=== PATIENT | female | born 2000 | race Caucasian/White ===

== ENCOUNTER → 2024-02-24 | Outpatient (CLI) | payer OTHER, SELFPAY ==
--- NOTE | 2024-02-24 10:09 | RAD_ITS ---
STUDY: X-RAY - LEFT KNEE REASON FOR EXAM: Female, 23 years old. PAIN TECHNIQUE: 4 views of the left knee. COMPARISON: None. FINDINGS: Normal visualized distal femur. Normal visualized proximal tibia and fibula. Normal proximal tibiofibular articulation. There is no demonstrated fracture. Normal medial femorotibial compartment. Normal lateral femorotibial compartment. Normal patellofemoral articulation. There is a tiny joint effusion. The soft tissue structures are unremarkable. RAD/Knee 4 or More Views IMPRESSION: Tiny joint effusion. No demonstrated fracture. Electronically Signed: Kt Zheng MD at 15:45 EDT ,
--- NOTE | 2024-02-24 10:10 | RAD_ITS ---
STUDY: X-RAY - RIGHT KNEE REASON FOR EXAM: Female, 23 years old. PAIN TECHNIQUE: 4 views of the right knee. COMPARISON: None. FINDINGS: Normal visualized distal femur. Normal visualized proximal tibia and fibula. Normal proximal tibiofibular articulation. There is no demonstrated fracture. Normal medial femorotibial compartment. Normal lateral femorotibial compartment. Normal patellofemoral articulation. There is a small joint effusion. The soft tissue structures are unremarkable. RAD/Knee 4 or More Views IMPRESSION: Small joint effusion. No demonstrated fracture. Electronically Signed: Kt Zheng MD at 15:44 EDT ,
[2024-02-24 11:10] LABS: EXAGEN MAILED SPECIMEN
[2024-02-24 12:26] LABS: Absolute Lymphocyte Count 1.83 X10^3/uL (0.83-4.51); Absolute Neutrophil Count 4.7 X10^3/uL (2.0-7.7); Basophil# 0.03 X10^3/uL; Basophil% 0.4 % (0-1); Eosinophil# 0.08 X10^3/uL; Eosinophils% 1.1 % (0-5); Hematocrit 42.6 % (37-47); Hemoglobin 13.8 g/dL (12.0-15.0); Lymphocyte # 1.83 X10^3/ul (0.83-4.51); Lymphocyte % 25.7 % (19-41); Mean Corp Hgb Conc 32.4 g/dL (32-36); Mean Corpuscular Volume 92.6 fL (81-99); Mean Platelet Vol. 11.5 fl (6.2-12.0); Monocyte# 0.48 X10^3/uL; Monocyte% 6.8 % (0-10); NRBC Flagged by Analyzer 0 % (0-5); Neutrophil # 4.66 X10^3/uL (2.7-7.7); Neutrophil % 65.6 % (47-70); Platelet Count 364 K/mm3 (150-450); RBC Distribution Width CV 12.4 % (11.6-14.6); RBC Distribution Width SD 42.3 fl (35.1-43.9); White Blood Count 7.1 K/mm3 (4.4-11.0)
[2024-02-24 12:29] LABS: Protein:Creat Ratio 118 mg/g CRE (0-200)
[2024-02-24 12:31] LABS: Color, Urine Yellow (Yellow); Glucose, Dipstick Normal (Normal); Ketone-Dipstick Negative (Negative); Leukocyte Esterase-Dipstick 25 /ul (Negative); Nitrite-Dipstick Negative (Negative); Occult Blood-Urine 10 /ul (Negative); Protein-Dipstick Negative (Negative); Specific Gravity, Urine 1.015 (1.002-1.030); Urine Bilirubin Dipstick Negative (Negative); Urine Clarity Sl. Cloudy (Clear); Urine Urobilinogen Normal (Normal); Urine pH 6.5 (5.0 - 8.0)
[2024-02-24 13:06] LABS: ALB/GLOB Ratio 0.9 RATIO (0.9-2.4); AST(SGOT) 21 U/L (15-37); Alanine Aminotransfer ALT/SGPT 34 U/L (13-56); Albumin, Serum 3.9 g/dL (3.2-5.0); Alkaline Phosphatase 69 U/L (45-117); Anion Gap 3 (5-15); BUN 10 mg/dL (7-18); Calcium,Total 9.4 mg/dL (8.5-10.1); Chloride 108 mmol/L (98-107); Creatinine, Serum 0.91 mg/dL (0.55-1.02); EST Glomerular Filtration Rate 81 mL/min (>60); Est Glom Filt Rate - Afr Amer 98 mL/min (>60); Globulin 4.2 g/dL (2.2-4.2); Glucose 87 mg/dL (74-106); Protein, Total 8.1 g/dL (6.4-8.2); Sodium Level 136 mmol/L (136-145)
[2024-02-24 13:33] LABS: Hepatitis B Surface Antibody Reactive; Hepatitis B Surface Antigen Non-Reactive (Nonreactive); Hepatitis C Antibody Non-Reactive (Nonreactive)
[2024-03-01 18:09] LABS: HLA B27 Negative (.)
== END | disposition home or self-care (01) ==
LOC: MTLAB 10:07
PROVIDERS: PCP Nurse Practitioner Family; Referring Provider Internal Medicine Rheumatology; Visit Provider Internal Medicine Rheumatology
DX: M06.4 Inflammatory polyarthropathy (principal); R76.8 Other specified abnormal immunological findings in serum
CPT/HCPCS: 36415; 73564; 80053; 81002; 81374; 82570; 84156; 85025; 86706; 86803; 87340

== ENCOUNTER 2025-02-24 07:00 | Outpatient (RCR) | payer OTHER, SELFPAY ==
--- NOTE | 2025-01-12 08:15 | HP.PTEVAL_ITS ---
Patient's Visit Information Visit Information Visit Information: CÉSAR CARDONA is a 24 year old F referred to Physical Therapy by ELVIRA Scott with a diagnosis of Bilateral Knee Pain. Date of Evaluation: 01/12/25 Physical Therapist: Sana Reddy DPT Visit Plan Frequency: 2x /Week Duration: 4 Weeks Plan: 2 weeks pool and 2 weeks land-Comprehensive HEP including gym and bands for scapular, core, UE and LE strength/stabilization and proprioception for hypermobility. HEP Given IE: clams, hip extension Subjective Subjective: Patient reports knee pain for about 4 years- left started- randomly driving and sharp pain- then started in the right- and is now random in both- as its gone on its now achy all the time- and random sharp pains on and off. There is no predicting pattern- sitting, standing, wakes her up at night. The pain is located behind the knee cap. Twice in the last month her right knee she has not been able to put weight on her right knee. She had her pick her knee up and sometimes if it pops it feels better. She had PT 2 years ago and they had no idea what was going on- when she was working out consistently- she adjusted it and it did not help. She is not working out consistently. She had surgery at the beginning of November but no restrictions now. She has seen PCP, rhumatology (no autoimmune), and ortho- she has spine MD next week. She also has OA in her neck and back. She is does a lot of popping and clicking. She does not feel better or worse when she is working out. She has compression braces but she wants to order PF braces- she is ordering them. 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 She feels the knees are worse from the beginning but at this point they are not pretty consistent. PMHx/Meds: no changes since ortho Objective Objective: Posture: forward head, rounded shoulders- can correct with verbal cues Gait: no deviation noted- pes planus HR/TR: able SLS: 30 sec with moderate pes planus ROM: hypermobile Strength: Core: fair minus, Scap: fair minus, Hip: 4/5 throughout, Knee: Left: Flexion: 30/32 Extn: 49/48 Right:Flexion: 31/32 Extn: 62/62, Ankle: 5/5, Balance/Special Test Scores Lower Extremity Functional Score: 69 Goals Goal 1:: Patient will be I with HEP and progression Goal Time Frame: 4-6 Weeks Goal 2:: Patient will report no pain in her knees for 1 week Goal Time Frame: 4-6 Weeks Goal 3:: Patient will demo equal strength in knee extension Goal Time Frame: 4-6 Weeks Goal 4:: Patient will report 80% improvement Goal Time Frame: 4-6 Weeks Rehabilitation Potential Physical Therapy Diagnosis: Patient presents with hypermobility- she has decreased LE and core strength/stabilization and muscular endurance leading to pes planus and increased instability with pain Anticipated Interventions Patient/Client Instruction: Educate patient on: Benefits of Fitness Program Therapeutic Exercise to Include: Strength training, Power training, Endurance training, Balance training, Coordination, Agility training, Body mechanics, Postural training, Gait and locomotor training, Neuromotor development, In an aquatic setting, Dynamic Lumbar Stabilization and Scapular Strength/Stabilization Text: Thank you for the opportunity to evaluate your patient. For Medicare and Medicare HMO plans, please review the plan of care and approve it. It will need to be FAXED BACK to us at [phone] for Medicare purposes. For Medicare only, by signing this I certify the plan of care. Please let me know if there are questions or concerns regarding this plan of care. Physician Signature: Date:__
--- NOTE | 2025-01-20 16:50 | HP.PTEVAL2 ---
Patient's Visit Information Visit Information Visit Information: CÉSAR CARDONA is a 24 year old F referred to Physical Therapy by ELVIRA Scott with a diagnosis of LOW BACK PAIN ,CERVICALGIA. Date of Evaluation: 01/20/25 Physical Therapist: Esau Adams, PT, Cert MDT, OCS Visit Plan Frequency: 2x /Week Duration: 4 Weeks Plan: PT INTERVENTIONS DLS ,POSTURAL EX'S,ACTIVITY MODIFICATION ,AND THORACIC STRENGTHENING Subjective Subjective: This 24 y/o female presents to physical therapy lumbar and cervical pain. Patient has had cervical and neck throughout high school no predisposing factors just insidious onset symptoms worse over time. Seen Mauricio Manrique ,recommended PT and pain management. No new medication celecoxib. Patient symmetrical pain described as ache. Aggravating general activities and daily tasks. level Alleviating popping and strethingh. C/O occasional BRITO. Denies tinnitus /nausea/dizziness. If PT doesn't help plan for MRI. Patient had x-rays Minimal to mild degenerative changes of the mid to lower cervical spine are seen, with mild disc narrowing noted at the C5-C6. Pain affects sleeping. R/O RA . Location symmetrical LS and no leg symptoms. Described as ache. Aggravating not specific activities . Alleviating factors stretching movement. Coughing/sneezing + .Bowel/bladder-. Denies paresthesia/tingling -. Patient has no h/o trauma or injury. Patient condition affects QOL and function/housework . X-rays showed Moderate disc space narrowing is seen at L4-L5, and at least moderate L5-S1 levels.Lower lumbar posterior facet hypertrophy is seen. SOCIAL: VOCATION: teacher Pain Bilateral Back: Intensity: 2 Pain Intensity Range: 6, 8 and 10 Bilateral Neck: Intensity: 2 Pain Intensity Range: 7 Objective Objective: POSTURE: rounded shoulders head forward ,increase lordosis NEURO: denies paresthesia/tingling ,reflexes L3-4,L4-5,L5-S1 3/3 ,C5-6-7 3/3 PALAPTION: unremarkable LUMBAR ROM: flexion WFL ,extension WFL ,side glides WFL HAMSTRINGS : WFL PROM HIP : hip ROM ER/IR WNL MMT: quads/hams/hip 4/5 and,ankle 4/5 CERVICAL ROM: flexion WFL ,rotation,lateral flexion WNL ,retraction WFL ,protrusion WFL MMT : BUE WFL Special Tests C/S Radiculapathy - Left Upper limb tension test: Negative C/S Radiculapathy - Right Upper limb tension test: Negative C/S Radiculapathy - Left [place]: Negative C/S Radiculapathy - Right [place]: Negative C/S Radiculapathy - Left Cervical distraction: Negative C/S Radiculapathy - Right Cervical distraction: Negative C/S Radiculapathy - Left Relief test: Negative C/S Radiculapathy - Right Relief test: Negative Sharp Tavo: Negative Vertebral Artery Test: Negative Alar Ligament Test: Negative Protrusion - Mechanical Response: No effect Protrusion - Symptoms During Testing: No effect Protrusion - Symptoms After Testing: No effect Retraction - Mechanical Response: No effect Retraction - Symptoms During Testing: No effect Retraction - Symptoms After Testing: No effect Retraction-Extension - Mechanical Response: No effect Retraction-Extension - Symptoms During Testing: No effect Retraction-Extension - Symptoms After Testing: No effect Sidebend Right - Mechanical Response: No effect Sidebend Right - Symptoms During Testing: No effect Sidebend Right - Symptoms After Testing: No effect Sidebend Left - Mechanical Response: No effect Sidebend Left - Symptoms During Testing: No effect Sidebend Left - Symptoms After Testing: No effect Rotation Right - Mechanical Response: No effect Rotation Right - Symptoms During Testing: No effect Rotation Right - Symptoms After Testing: No effect Rotation Left - Mechanical Response: No effect Rotation Left - Symptoms During Testing: No effect Rotation Left - Symptoms After Testing: No effect Flexion - Mechanical Response: No effect Flexion - Symptoms During Testing: No effect Flexion - Symptoms After Testing: No effect Slump test left side: Negative Slump test right side: Negative Left Straight Leg Raise: Negative Right Straight Leg Raise: Negative Flexion - Mechanical Response: No effect Flexion - Symptoms During Testing: Increases Flexion - Symptoms After Testing: No worse Extension - Mechanical Response: No effect Extension - Symptoms During Testing: Increases Extension - Symptoms After Testing: No worse Right Side Glides - Mechanical Response: No effect Right Side [place] - Symptoms During Testing: No effect Right Side [place] - Symptoms After Testing: No effect Left Side [place] - Mechanical Response: No effect Left Side [place] - Symptoms During Testing: No effect Left Side [place] - Symptoms After Testing: No effect Goals Goal 1:: Patient to be I with HEP for back Goal Time Frame: 4-6 Weeks Goal 2:: Patient to improve cervical and lumbar ROM for function of recovery for job demands Goal Time Frame: 4-6 Weeks Goal 3:: Patient to improve back oswestry score by 3-5 points to improve QOL Goal Time Frame: 4-6 Weeks Goal 4:: Patient to demonstrate 70% improvement with less pain and improved function job and house demands Goal Time Frame: 4-6 Weeks Goal 5:: Patient to improve posture /body mechanics 90% of the time Goal Time Frame: 4-6 Weeks Rehabilitation Potential Physical Therapy Diagnosis: This patient has cervical pain along with lumbar pain with apparent DDD mod L4-S1 with pain with positioning and motion testing thus benefit from skilled PT Rehabilitation Potential: Good Anticipated Interventions Patient/Client Instruction: Educate patient on: Condition and Plan of Care For the Purpose of:: To decrease pain, To improve muscle performance and motor function, To improve ability to perform ADL's, To increase tolerance to activity/condition/position, To improve ability of physical actions for home/community/work/leisure, To improve balance, To reduce risk of recurrence and To improve tolerance to ADL's Therapeutic Exercise to Include: Strength training, Postural training, Flexibilty training, Dynamic Lumbar Stabilization and Scapular Strength/Stabilization For the Purpose of:: To decrease pain, To improve muscle performance and motor function, To improve ability to perform ADL's, To increase tolerance to activity/condition/position, To improve ability of physical actions for home/community/work/leisure, To increase flexibility/ROM, To improve endurance and To reduce risk of recurrence TENS: Yes IF ES: Yes Cryotherapy (ice pack, ice massage): Yes Thermo therapy (hot pack): Yes Ultrasound (thermal/non thermal): Yes For the Purpose of:: To decrease pain, To improve muscle performance and motor function, To improve ability to perform ADL's, To increase tolerance to activity/condition/position, To improve ability of physical actions for home/community/work/leisure, To reduce risk of recurrence and To improve tolerance to ADL's text: Thank you for the opportunity to evaluate your patient. For Medicare and Medicare HMO plans, please review the plan of care and approve it. It will need to be FAXED BACK to us at [phone] for Medicare purposes. For Medicare only, by signing this I certify the plan of care. Please let me know if there are questions or concerns regarding this plan of care. Physician Signature: Date:
--- NOTE | 2025-02-10 07:28 | HP.PTDCSUM ---
Discharge Summary D/C summary: It has been my pleasure to treat CÉSAR CARDONA referred by Narda Trivedi NP-C, with the diagnosis of Bilateral Knee Pain for a total of 13 visit(s). Discharge Date: Please see the following information for a summary of their discharge status. Subjective Subjective: Pt reports no overall improvements at this time. Pain Overall Pain: Pain Intensity (Out of 10): 1 Overall Improvement % Improvement: 0 Objective Objective/Function: B knee pain is 1/10 and constant. Pain will increase to a 4/10 Pt is I with HEP Pt reports feeling no improvements at this time MMT: L knee ext 46 #F, R knee 44 #F Pt has improved her strength and is I with a HEP. There has been no change in pain. Goals Goal 1:: Patient will be I with HEP and progression Goal Progress: Goal Met Goal 2:: Patient will report no pain in her knees for 1 week Goal Progress: Not Progressing Goal 3:: Patient will demo equal strength in knee extension Goal Progress: Goal Met Goal 4:: Patient will report 80% improvement Goal Progress: Not Progressing Plan Plan: Discontinue and return to doctor at this time D/C Information d/c sentence: If there are questions or concerns regarding this patient's physical therapy, please feel free to call me at [phone]. Thank you for the referral of this patient. Sincerely, Schuyler Edgar, PT, ATC Balance/Gait/Functional tests Balance/Special Test Scores Oswestry Low Back Score: 20 Lower Extremity Functional Score: 57 Improvement % Improvement: 0
--- NOTE | 2025-02-24 07:21 | HP.PTDCSUM ---
Discharge Summary D/C summary: It has been my pleasure to treat CÉSAR CARDONA referred by Narda Trivedi NP-C, with the diagnosis of Bilateral Knee Pain for a total of 13 visit(s). Discharge Date: Please see the following information for a summary of their discharge status. Subjective Subjective: Pt reports no overall improvements at this time. Pain Overall Pain: Pain Intensity (Out of 10): 1 Overall Improvement % Improvement: 0 Objective Objective/Function: B knee pain is 1/10 and constant. Pain will increase to a 4/10 Pt is I with HEP Pt reports feeling no improvements at this time MMT: L knee ext 46 #F, R knee 44 #F Pt has improved her strength and is I with a HEP. There has been no change in pain. Goals Goal 1:: Patient will be I with HEP and progression Goal Progress: Goal Met Goal 2:: Patient will report no pain in her knees for 1 week Goal Progress: Not Progressing Goal 3:: Patient will demo equal strength in knee extension Goal Progress: Goal Met Goal 4:: Patient will report 80% improvement Goal Progress: Not Progressing Plan Plan: Discontinue and return to doctor at this time D/C Information d/c sentence: If there are questions or concerns regarding this patient's physical therapy, please feel free to call me at [phone]. Thank you for the referral of this patient. Sincerely, Esau Adams, PT, Cert MDT, OCS Balance/Gait/Functional tests Balance/Special Test Scores Oswestry Low Back Score: 20 Lower Extremity Functional Score: 57 Improvement % Improvement: 0
== END 2025-02-24 13:53 | disposition home or self-care (01) ==
LOC: PT 07:00
PROVIDERS: PCP Nurse Practitioner Family; Referring Provider Nurse Practitioner Family; Visit Provider Nurse Practitioner Family
DX: M25.561 Pain in right knee (principal); M25.562 Pain in left knee; M25.50 Pain in unspecified joint
CPT/HCPCS: 97110; 97113; 97162; 97530

== ENCOUNTER → 2025-03-06 | Outpatient (CLI) | payer OTHER, SELFPAY ==
--- NOTE | 2025-03-06 16:20 | MRI_ITS ---
PROCEDURE: MRI SPINE LUMBAR (ROUTINE) 03/06/2025 REASON FOR EXAM: LOWER BACK PAIN TECHNIQUE: Procedure Code: MRISPL Modality: MR Procedure: SPINE LUMBAR (ROUTINE) COMPARISON: Lumbar spine radiographs 01/16/2025. FINDINGS: Note transitional anatomy at the lumbosacral junction with a lumbarized S1 segment resulting in 6 [id number] lumbar-type vertebrae. No acute fracture or subluxation. Alignment is anatomic. Normal marrow signal. Mild spondylotic changes primarily at the lumbosacral junction with mild disc desiccation and narrowing at L5-S1, with a corresponding broad-based disc bulge indenting the ventral thecal sac, with mild spinal canal narrowing. Mild bilateral neural foraminal narrowing at the same level. No disc bulge, spinal canal or neural foraminal narrowing at the remaining levels. Conus medullaris appears normal in signal and morphology, terminating at L1. Normal appearance of the cauda equina. Unremarkable paravertebral soft tissues. MRI/Spine Lumbar (Routine) IMPRESSION: Note transitional anatomy at the lumbosacral junction. Lumbarized S1 segment. Mild degenerative disc disease at L5-S1 with disc bulge resulting in mild spina l canal and bilateral neural foraminal narrowing. No discrete cauda equina nerve root impingement. Reading Location: [id number]
== END | disposition home or self-care (01) ==
LOC: MRI 16:18
PROVIDERS: PCP Nurse Practitioner Family; Referring Provider Student in an Organized Health Care Education/Training Program; Visit Provider Student in an Organized Health Care Education/Training Program
DX: M54.50 Low back pain, unspecified (principal); G89.29 Other chronic pain; M51.379 Other intervertebral disc degeneration, lumbosacral region without mention of lumbar back pain or lower extremity pain
CPT/HCPCS: 72148

== ENCOUNTER → 2025-03-15 | Outpatient (CLI) | payer OTHER, SELFPAY ==
--- NOTE | 2025-03-15 15:55 | MRI_ITS ---
PROCEDURE: SPINE CERVICAL (ROUTINE) 03/15/2025 REASON FOR EXAM: WORSENING DEXTERITY, NECK AND LEFT SHOULDER PAIN TECHNIQUE: Procedure Code: MRISPC Modality: MR Procedure: SPINE CERVICAL (ROUTINE) Multiplanar and multisequence images were obtained without IV contrast administration. COMPARISON: 16-Jan-2025 CR FINDINGS: Straightening of cervical curve denoting myospasm. No vertebral fracture/dislocation noted. The vertebral body heights are normal. The examined vertebral bodies and posterior neural elements appear intact with no fractures. Atlantodens interval is preserved. Odontoid process and atlantoaxial joint appear normal. Normal craniometric measures of the craniovertebral junction Preserved height and bright T2 signal of the intervertebral discs. C2-C3: There is no significant disc pathology. Normal morphology of the ligamentum flava. No arthropathy of the uncovertebral and zygapophyseal joints. No significant spinal canal stenosis noted. C3-C4: There is no significant disc pathology. Normal morphology of the ligamentum flava. No arthropathy of the uncovertebral and zygapophyseal joints. No significant spinal canal stenosis noted. C4-C5: a 1.5 mm diffuse disc bulge inclined to the left side indenting the theca and encroaching upon the related neural exit foramina inducing mild right and moderate left exiting nerve roots compression. C5-C6: There is no significant disc pathology. Normal morphology of the ligamentum flava. No arthropathy of the uncovertebral and zygapophyseal joints. No significant spinal canal stenosis noted. C6-C7: There is no significant disc pathology. Normal morphology of the ligamentum flava. No arthropathy of the uncovertebral and zygapophyseal joints. No significant spinal canal stenosis noted. C7-T1: There is no significant disc pathology. Normal morphology of the ligamentum flava. No arthropathy of the uncovertebral and zygapophyseal joints. No significant spinal canal stenosis noted. Normal appearance of the examined cervical cord and cranio-cervical junction. No marrow infiltrative lesions. No paraspinal soft tissue masses. MRI/Spine Cervical (Routine) IMPRESSION: Straightening of cervical curve denoting myospasm. No vertebral fractures/dislocation noted. C4-C5: a 1.5 mm diffuse disc bulge inclined to the left side inducing mild righ t and moderate left exiting nerve roots compression. Reading Location: [id number]
== END | disposition home or self-care (01) ==
LOC: OPMRI 15:55
PROVIDERS: PCP Nurse Practitioner Family; Referring Provider Student in an Organized Health Care Education/Training Program; Visit Provider Student in an Organized Health Care Education/Training Program
DX: G95.9 Disease of spinal cord, unspecified (principal)
CPT/HCPCS: 72141

== ENCOUNTER → 2025-05-10 | Outpatient (CLI) | payer OTHER, SELFPAY ==
--- NOTE | 2025-05-10 16:20 | MRI_ITS ---
PROCEDURE: LOWER EXT JOINT ONLY (ROUTINE) 05/10/2025 REASON FOR EXAM: PAIN, PAINFUL POPPING TECHNIQUE: Procedure Code: MRILEJ Modality: MR Procedure: LOWER EXT JOINT ONLY (ROUTINE) T1, T2, PD, multiplanar and multisequence images were obtained without IV contrast administration, left knee. COMPARISON: COMPARISON : None FINDINGS: Bone Marrow: There is no bony contusion or occult fracture. Cruciate ligaments: There is a edema and attenuation in the mid and lower portion of the anterior cruciate ligament without laxity, grade 2 sprain. The posterior cruciate appears intact. Collateral ligaments: The medial collateral ligament appears intact. The lateral collateral ligament complex appears intact. Menisci: There is a horizontal tear in the body of the lateral meniscus which extends to the tibial surface. There is a horizontal tear in the body of the medial meniscus which extends to the tibial surface. Effusion: There is a trace joint effusion. There is no Maynard's cyst. Soft Tissues: There is no soft tissue mass or cyst. Extensor compartment. The distal quadriceps and patellar tendons appear intact. MRI/Lower Ext Joint Only (Routine) IMPRESSION: There is a edema and attenuation in the mid and lower portion of the anterior c ruciate ligament without laxity, grade 2 sprain. There is a horizontal tear in the body of the lateral meniscus which extends to the tibial surface. There is a trace joint effusion. Reading Location: [facility]
--- NOTE | 2025-05-10 16:20 | MRI_ITS ---
PROCEDURE: LOWER EXT JOINT ONLY (ROUTINE) 05/10/2025 REASON FOR EXAM: PAIN, PAINFUL POPPING TECHNIQUE: Procedure Code: MRILEJ Modality: MR Procedure: LOWER EXT JOINT ONLY (ROUTINE) T1, T2, PD, multiplanar and multisequence images of the right knee were obtained without IV contrast administration. COMPARISON: COMPARISON : None FINDINGS: Bone Marrow: There is no bony contusion or osteochondral defect. Cruciate ligaments: The anterior cruciate ligament shows edema and attenuation of the mid and distal 3rd without laxity, grade 2 sprain. The posterior cruciate appears intact. Collateral ligaments: The medial collateral ligament appears intact. The lateral collateral ligament complex appears intact. Menisci: The lateral meniscus appears intact. There is a horizontal tear in the body of the medial meniscus which extends to the tibial surface, coronal image 13/32. Effusion: There is a small joint effusion. There is no Maynard's cyst. Cartilage: There is no focal chondromalacia. MRI/Lower Ext Joint Only (Routine) IMPRESSION: The anterior cruciate ligament shows edema and attenuation of the mid and dista l 3rd without laxity, grade 2 sprain. There is a horizontal tear in the body of the medial meniscus which extends to the tibial surface, coronal image 13/32. There is a small joint effusion. Reading Location: [facility]
== END | disposition home or self-care (01) ==
LOC: MRI 16:16
PROVIDERS: PCP Nurse Practitioner Family; Referring Provider Nurse Practitioner Family; Visit Provider Nurse Practitioner Family
DX: M25.562 Pain in left knee (principal); M25.561 Pain in right knee; G89.29 Other chronic pain
CPT/HCPCS: 73721